=== PATIENT | female | born 1990 | race Caucasian/White ===

== ENCOUNTER 2016-10-06 14:57 | Emergency (ER) | payer OTHER ==
[2016-10-06 15:02] VITALS: TEMP 98.2; BMI 20.3
--- NOTE | 2016-10-06 15:24 | PDOC ---
History of Present Illness - General History Source: Patient - History of Present Illness Initial Comments: 10/06/16 16:31 The patient is a 26 year old female with a significant past medical history of migraines and scoliosis who presents to the Emergency Department with complaints of gradually worsening pounding left-sided headache and numbness and tingling to the left side of face and left arm for 2 days. Pt was diagnosed with migraines in the past and she states that she is having the similar symptoms. She also reports photophobia, dizziness, and nausea. Pt is on excedrin migraine, with no relief. She denies fever, chills, abdominal pain, vomiting, diarrhea, hematuria, dysuria. PCP: Dr. Kandice Wing <Isabel Velazquez - Last Filed: 10/06/16 16:31> <Yogesh Retana - Last Filed: 10/06/16 18:21> - General Chief Complaint: Migraine Headache Stated Complaint: HEADACHES, NUMBNESS TO LT SIDE OF FACE Time Seen by Provider: 10/06/16 15:13 Past History <Isabel Velazquez - Last Filed: 10/06/16 16:31> - Past Medical History Other medical history: migraines - Psycho/Social/Smoking Cessation Hx Anxiety: No Suicidal Ideation: No Smoking Status: No Smoking History: Never smoked Have you smoked in the past 12 months: No Number of Cigarettes Smoked Daily: 0 Information on smoking cessation initiated: No Hx Alcohol Use: No Drug/Substance Use Hx: No Substance Use Type: None <Yogesh Retana - Last Filed: 10/06/16 18:21> - Past Medical History Allergies/Adverse Reactions: Allergies Allergy/AdvReac Type Severity Reaction Status Date / Time No Known Allergies Allergy Verified 04/01/15 13:24 Home Medications: Ambulatory Orders No Home Medications 0 dose .ROUTE UTDICT 03/09/14 Review of Systems - Review of Systems Able to Perform ROS?: Yes Comments:: 10/06/16 16:32 CONSTITUTIONAL: No reported: Fever, Chills, Diaphoresis, Generalized Weakness, Malaise, Loss of Appetite HEENT: No reported: Rhinorrhea, Nasal Congestion, Throat Pain, Throat Swelling, Difficulty Swallowing, Mouth Swelling, Ear Pain, Eye Pain, Visual Changes CARDIOVASCULAR: No reported: Chest Pain, Syncope, Palpitations, Irregular Heart Rate, Lightheadedness, Peripheral Edema RESPIRATORY: No reported: Cough, Shortness of Breath, SOB with Exertion, Orthopnea, Wheezing , Stridor, Hemoptysis GASTROINTESTINAL: Yes: nausea No reported: Abdominal pain, Abdominal Distension, Vomiting, Diarrhea, Constipation, Melena, Hematochezia GENITOURINARY: No reported: Dysuria, Frequency, Urgency, Hesitancy, Flank Pain, Genital Pain MUSCULOSKELETAL: No reported: Myalgia, Arthralgia, Joint Swelling, Back pain, Neck Pain SKIN: No reported: Rash, Itching, Pallor HEMEATOLOGIC/IMMUNOLOGIC: No reported: Easy Bleeding, Easy Bruising, Lymphadenopathy, Frequent infections ENDOCRINE: No reported: Unexplained Weight Gain, Unexplained Weight Loss, Heat Intolerance , Cold Intolerance NEUROLOGIC: Yes: dizziness, headache, photobia, numbness and tingling left sided No reported : Focal Weakness, Vertigo, Unsteady Gait, Seizure, Mental Status Changes, Incontinence PSYCHIATRIC: No reported: Anxiety, Depression All Other Systems: Reviewed and Negative <Isabel Velazquez - Last Filed: 10/06/16 16:31> *Physical Exam - Vital Signs Last Vital Signs Temp Pulse Resp BP Pulse Ox 98.2 F 76 20 139/87 100 10/06/16 15:00 10/06/16 15:00 10/06/16 15:00 10/06/16 15:00 10/06/16 15:00 - Physical Exam Comments: 10/06/16 16:32 GENERAL: The patient is awake, alert, and fully oriented, Nontoxic - in no acute distress. HEAD: Normocephalic, atraumatic. EYES: extraocular movements intact, sclera anicteric, conjunctiva clear. pupils 3mm and symmetric ENT: Normal voice, Moist mucous membranes. NECK: Normal range of motion, supple LUNGS: Breath sounds equal, clear to auscultation bilaterally. No wheezes, no rhonchi, no rales. HEART: Regular rate and rhythm, normal S1 and S2 without murmur, rub or gallop. ABDOMEN: Soft, nontender, normoactive bowel sounds. No guarding, no rebound. . No CVA tenderness EXTREMITIES: Normal range of motion, no edema. No clubbing or cyanosis. No cords, erythema, or tenderness. NEUROLOGICAL: No facial assymetry, Normal speech, sensation intact and symmetric on face/armslegs, motor function 5/5 inupper/lower extremities, normal gait, negative romberg, no ataxia PSYCH: Normal mood, normal affect. SKIN: Warm, Dry, normal turgor, <Isabel Velazquez - Last Filed: 10/06/16 16:31> - Vital Signs Last Vital Signs Temp Pulse Resp BP Pulse Ox 98.2 F 76 20 139/87 100 10/06/16 15:00 10/06/16 15:00 10/06/16 15:00 10/06/16 15:00 10/06/16 15:00 <Yogesh Retana - Last Filed: 10/06/16 18:21> ED Treatment Course - LABORATORY CBC & Chemistry Diagram: 10/06/16 15:39 10/06/16 15:45 - Medications Given in the ED: ED Medications Discontinued Medications Generic Name Dose Route Start Last Admin Trade Name Freq PRN Reason Stop Dose Admin Sodium Chloride 1,000 mls @ 1,000 mls/hr 10/06/16 15:32 10/06/16 16:03 Normal Saline - IV 10/06/16 16:31 1,000 mls/hr .Q1H ONE Administration Ketorolac Tromethamine 30 mg 10/06/16 15:32 10/06/16 16:03 Toradol Injection - IVPUSH 10/06/16 15:33 30 mg ONCE ONE Administration Magnesium Sulfate 1 gm 10/06/16 15:32 10/06/16 16:03 Magnesium Sulfate IVPB 10/06/16 15:33 1 gm ONCE ONE Administration Metoclopramide HCl 10 mg 10/06/16 15:32 10/06/16 16:03 Reglan Injection - IVPUSH 10/06/16 15:33 10 mg ONCE ONE Administration <Isabel Velazquez - Last Filed: 10/06/16 16:31> - LABORATORY CBC & Chemistry Diagram: 10/06/16 15:39 10/06/16 15:45 <Yogesh Retana - Last Filed: 10/06/16 18:21> Medical Decision Making - Medical Decision Making 10/06/16 15:33 26y F hx of migraines, scoliosis presentss with headache x 2 days, gradually worsening, associate n/b, photophobia, and a tingling sensation to her face and arms/legs on left side. The patient states this is simialr to the patients prior migraines, she tried tylenola nd excedrin migraine without significant improvement. on exam the pt is in no acute distress, has a nonfocal neuro/ physical exam, will give the pt reglan, fliuds, toradol, magenesium suspect complicated migraine as it is similar to prior headaches, doubt SAH as pt has had similar headaches, and was gradually worsening over course of 2-3 days will reassess after meds if persistent, will obtain CT head A portion of this note was documented by scribe services under my direction. I have reviewed the details of the note, within reason, and agree with the documentation with the following case summary and management plan written by me 10/06/16 18:19 pt feeling improved headache and parasthesias resolved will d/c the pt with pmd and neuro fu return precautions were discussed I discussed the physical exam findings, ancillary test results and final diagnoses with the patient. I answered all of the patient's questions. The patient was satisfied with the care received and felt comfortable with the discharge plan and treatment plan. The patient will call their primary care physician within 24 hours to arrange follow-up and will return to the Emergency Department with any new, persistent or worsening symptoms. <Yogesh Retana - Last Filed: 10/06/16 18:21> *DC/Admit/Observation/Transfer - Attestations Scribe Attestion: 10/06/16 16:32 Documentation prepared by Isabel Velazquez, acting as medical donation professional for Yogesh Retana MD. <Isabel Velazquez - Last Filed: 10/06/16 16:31> - Discharge Dispostion Admit: No <Yogesh Retana - Last Filed: 10/06/16 18:21> Diagnosis at time of Disposition: Migraine Qualifiers: Migraine type: with aura Status migrainosus presence: without status migrainosus Intractability: not intractable Qualified Code(s): G43.109 - Migraine with aura, not intractable, without status migrainosus - Discharge Dispostion Disposition: HOME Condition at time of disposition: Improved - Referrals Referrals: Kandice Wing [Primary Care Provider] - Xochitl Montiel MD [Staff Physician] - - Patient Instructions Printed Discharge Instructions: DI for Migraine Additional Instructions: Vuelva al departamento de emergencia inmediatamente con CUALQUIER nuevo, persistente o empeorando los sntomas. Usted DEBE llamar y seguir con umanzor doctor maana para la evaluacin adicional de iesha sntomas. Los resultados fueron discutidos con usted. Por favor, asegrese de que umanzor mdico revise los resultados de umanzor evaluacin de emergencia. Si usted tuvo alguna radiografa femi umanzor visita, fue roman preliminarmente por m mismo, un Radilogo lo revisar y si hay algn hallazgo adicional lo llamaremos. Return to the emergency department immediately with ANY new, persistent or worsening symptoms. You MUST call and follow up with your doctor tomorrow for further evaluation of your symptoms. Results were discussed with you. Please make sure your doctor reviews the results of your emergency evaluation. If you had any xrays during your visit, it was read preliminarily by myself, a Radiologist will review it and if there are any additional findings we will call you.
[2016-10-06] MEDS ORDERED: MAGNESIUM SULF 50% (8.12 MEQ/2 ML-1 GM VIAL) IVPB ONE (15:32)
[2016-10-06] MEDS ORDERED: METOCLOPRAMIDE HCL INJECTION 10 MG/2 ML VIAL IVPUSH ONE (15:32)
[2016-10-06] MEDS ORDERED: KETOROLAC TROMETHAMINE 30 MG/1 ML VIAL IVPUSH ONE (15:32)
[2016-10-06] MEDS ORDERED: SODIUM CHLORIDE 1,000 ML IV ONE (15:32)
[2016-10-06] MEDS ORDERED: METOCLOPRAMIDE HCL INJECTION 10 MG/2 ML VIAL ONE (15:41)
[2016-10-06] MEDS ORDERED: MAGNESIUM SULF 50% (8.12 MEQ/2 ML-1 GM VIAL) ONE (15:41)
[2016-10-06] MEDS ORDERED: KETOROLAC TROMETHAMINE 60 MG/2 ML VIAL ONE (15:41)
[2016-10-06 16:15] LABS: BASOPHIL 0.5 % (0-2.0); EOSINOPHIL 0.6 % (0-4.5); MCH 28.5 pg (25.7-33.7); MCHC 32.5 g/dl (32.0-36.0); MEAN CELL VOLUME 87.7 fl (80-96); MEAN PLT VOLUME 9.2 fl (7.5-11.1); NEUTROPHILS 59.6 % (42.8-82.8); PLATELET COUNT 289 K/MM3 (134-434); RDW 13.4 % (11.6-15.6); WHITE BLOOD COUNT 10.8 K/mm3 (4.0-10.0)
[2016-10-06 16:40] LABS: URINE APPEARANCE CLEAR; URINE BILIRUBIN NEGATIVE (NEGATIVE); URINE BLOOD NEGATIVE (NEGATIVE); URINE COLOR STRAW; URINE GLUCOSE (UA) NEGATIVE (NEGATIVE); URINE KETONE NEGATIVE (NEGATIVE); URINE LEUK ESTERASE NEGATIVE (NEGATIVE); URINE NITRITE NEGATIVE (NEGATIVE); URINE PROTEIN NEGATIVE (NEGATIVE); URINE UROBILINOGEN NEGATIVE E.U./dl (0.2-1.0)
[2016-10-06 16:46] LABS: ALBUMIN 3.7 g/dl (3.4-5.0); CALCIUM 9.1 mg/dL (8.5-10.1); CREATININE 1.1 mg/dL (0.55-1.02)
[2016-10-06 16:48] LABS: BILIRUBIN,TOTAL 0.5 mg/dL (0.2-1.0); TOT PROT 7.1 g/dl (6.4-8.2)
[2016-10-06 18:43] VITALS: BP 126/56; PULSE 78
== END 2016-10-06 18:43 | disposition home or self-care (01) ==
LOC: JER 14:57
PROC: 3E0333Z Introduction of Anti-inflammatory into Peripheral Vein, Percutaneous Approach (ICD-10-PCS; principal; 2016-10-06)
PROC: 3E033GC Introduction of Other Therapeutic Substance into Peripheral Vein, Percutaneous Approach (ICD-10-PCS; 2016-10-06)
DX: G43.109 Migraine with aura, not intractable, without status migrainosus (principal)
CPT/HCPCS: 36415; 80053; 81003; 84703; 85025; 96374; 96375; 99283-25

== ENCOUNTER 2019-11-18 16:02 | Emergency (ER) | payer OTHER ==
[2019-11-18 16:08] VITALS: BP 133/86; PULSE 90; TEMP 98.9; BMI 25.0
--- NOTE | 2019-11-18 16:09 | PDOC ---
Rapid Medical Evaluation Time Seen by Provider: 11/18/19 16:05 Medical Evaluation: Allergies Allergy/AdvReac Type Severity Reaction Status Date / Time No Known Allergies Allergy Verified 11/18/19 16:05 11/18/19 16:07 Pt presents for evaluation of a productive cough for 2 weeks and generalized body aches. She notes she has blood after coughing and had subjective fevers this morning for which she took Tylenol. Exam: lungs CTAB Orders: CXR Pt to proceed to the ER for further evaluation. Discharge Disposition - Diagnosis Cough - Referrals - Patient Instructions - Post Discharge Activity
--- NOTE | 2019-11-18 16:40 | PDOC ---
History of Present Illness - General Chief Complaint: Cold Symptoms Stated Complaint: COUGH/FEVER Time Seen by Provider: 11/18/19 16:05 History Source: Patient - History of Present Illness Timing/Duration: reports: other Past History - Past Medical History Allergies/Adverse Reactions: Allergies Allergy/AdvReac Type Severity Reaction Status Date / Time No Known Allergies Allergy Verified 11/18/19 16:05 Home Medications: Ambulatory Orders No Home Medications 0 dose .ROUTE UTDICT 03/09/14 Ibuprofen 600 mg PO ACDIN #21 tablet 01/11/18 Valacyclovir HCl [Valtrex] 1,000 mg PO BID #14 tablet 01/11/18 COPD: No - Psycho Social/Smoking Cessation Hx Smoking Status: No Smoking History: Never smoked Have you smoked in the past 12 months: No Number of Cigarettes Smoked Daily: 0 Hx Alcohol Use: No Drug/Substance Use Hx: No Substance Use Type: None Review of Systems - Review of Systems Constitutional: No: Chills, Fever HEENTM: Yes: Ear Pain. No: Throat Pain Respiratory: Yes: Cough. No: Shortness of Breath, Wheezing Cardiac (ROS): No: Chest Pain *Physical Exam - Vital Signs Last Vital Signs Temp Pulse Resp BP Pulse Ox 98.9 F 90 18 133/86 100 11/18/19 16:06 11/18/19 16:06 11/18/19 16:06 11/18/19 16:06 11/18/19 16:06 - Physical Exam General Appearance: Yes: Appropriately Dressed. No: Apparent Distress HEENT: positive: Normal ENT Inspection, Normal Voice, TMs Normal, Pharynx Normal. negative: Scleral Icterus (R), Scleral Icterus (L) Neck: positive: Supple Respiratory/Chest: positive: Lungs Clear, Normal Breath Sounds. negative: Respiratory Distress Cardiovascular: positive: Regular Rate, S1, S2 Integumentary: positive: Dry, Warm Neurologic: positive: Fully Oriented, Alert, Normal Mood/Affect Medical Decision Making - Medical Decision Making 11/18/19 16:38 29-year-old female, denies any past medical history, here with 2 weeks of non- productive cough with b/l ear pain. Denies hemoptysis, shortness of breath, chest pain, fever or chills. No history of pneumonia. Non-smoker see exam M/l viral URI Exam wnl CXR ordered at [facility] and neg Dc w/ supportive tx Discharge - Discharge Information Problems reviewed: Yes Clinical Impression/Diagnosis: Cough Condition: Good Disposition: HOME - Follow up/Referral Referrals: Kandice Wing [Primary Care Provider] - - Patient Discharge Instructions Patient Printed Discharge Instructions: DI for Viral Upper Respiratory Infection -- Adult - Post Discharge Activity
== END 2019-11-18 16:40 | disposition home or self-care (01) ==
LOC: JERFT 16:02
DX: J06.9 Acute upper respiratory infection, unspecified (principal); B97.89 Other viral agents as the cause of diseases classified elsewhere
CPT/HCPCS: 71046-TC-FY; 99283-25

== ENCOUNTER 2021-01-23 17:53 | Emergency (ER) | payer OTHER ==
[2021-01-23 18:00] VITALS: BP 137/95; PULSE 85; TEMP 97.3; BMI 23.5
[2021-01-23] MEDS ORDERED: LORATADINE 10 MG TABLET PO ONE (18:15)
[2021-01-23] MEDS ORDERED: LORATADINE 10 MG TABLET ONE (18:16)
== END 2021-01-23 18:20 | disposition home or self-care (01) ==
LOC: JER 17:53 → JERFT 17:53
DX: L50.0 Allergic urticaria (principal)
CPT/HCPCS: 99283-25

== ENCOUNTER 2022-03-01 11:45 | Emergency (ER) | payer OTHER ==
[2022-03-01 11:58] VITALS: BP 145/92; PULSE 91; TEMP 98.4; BMI 25.8
[2022-03-01] MEDS ORDERED: ACETAMINOPHEN 325 MG TABLET (FP) PO ONE (12:56)
[2022-03-01] MEDS ORDERED: ACETAMINOPHEN 325 MG TABLET (FP) ONE (12:58)
[2022-03-01 14:44] LABS: BASO % 0.4 % (0-2.0); EOS % 0.9 % (0-4.5); HEMATOCRIT 37.7 % (32.4-45.2); HEMOGLOBIN 12.7 GM/dL (10.7-15.3); LYMPH % 33.8 % (8-40); MCH 28.6 pg (25.7-33.7); MCHC 33.7 g/dl (32.0-36.0); MEAN CELL VOLUME 84.7 fl (80-96); MEAN PLT VOLUME 8.9 fl (7.5-11.1); MONO % 5.6 % (3.8-10.2); NEUT % 59.3 % (42.8-82.8); PLATELET COUNT 280 10^3/uL (134-434); RBC 4.45 M/mm3 (3.60-5.2); RDW 13.8 % (11.6-15.6); WHITE BLOOD COUNT 9.2 K/mm3 (4.0-10.0)
[2022-03-01 15:20] LABS: CALCIUM 9.5 mg/dL (8.5-10.1)
[2022-03-01 15:21] LABS: ALBUMIN 3.6 g/dl (3.4-5.0); BLOOD UREA NITROGEN 12.3 mg/dL (7-18)
[2022-03-01 15:25] LABS: BILIRUBIN,TOTAL 0.4 mg/dL (0.2-1); TOT PROT 7.1 g/dl (6.4-8.2)
== END 2022-03-01 17:10 | disposition home or self-care (01) ==
LOC: JER 11:45
DX: M54.2 Cervicalgia (principal)
CPT/HCPCS: 36415; 70450-TC; 72125-TC; 80053; 85025; 93005; 93010; 99285-25

== ENCOUNTER 2022-04-05 13:34 | Emergency (ER) | payer OTHER ==
[2022-04-05 14:44] VITALS: BP 132/86; PULSE 85; TEMP 98.2; BMI 25.0
[2022-04-05 16:38] LABS: BASO % 0.7 % (0-2.0); EOS % 1.6 % (0-4.5); HEMATOCRIT 38.1 % (32.4-45.2); HEMOGLOBIN 12.7 GM/dL (10.7-15.3); LYMPH % 36.5 % (8-40); MCH 28.6 pg (25.7-33.7); MCHC 33.5 g/dl (32.0-36.0); MEAN CELL VOLUME 85.4 fl (80-96); MEAN PLT VOLUME 8.7 fl (7.5-11.1); MONO % 7.8 % (3.8-10.2); NEUT % 53.4 % (42.8-82.8); PLATELET COUNT 309 10^3/uL (134-434); RBC 4.46 M/mm3 (3.60-5.2); WHITE BLOOD COUNT 7.6 K/mm3 (4.0-10.0)
[2022-04-05 16:45] LABS: EPI CELLS 3 /uL (0-25.1); HYALINE CASTS 0 /uL (0-3.1); PH,URINE 6.5 (5.0-8.0); URINE APPEARANCE CLEAR; URINE BACTERIA 5 /uL (0-1359); URINE BILIRUBIN NEGATIVE (NEGATIVE); URINE COLOR YELLOW; URINE GLUCOSE (UA) NEGATIVE (NEGATIVE); URINE KETONE NEGATIVE (NEGATIVE); URINE LEUK ESTERASE NEGATIVE (NEGATIVE); URINE NITRITE NEGATIVE (NEGATIVE); URINE PROTEIN NEGATIVE (NEGATIVE); URINE RBC 443 /uL (0-23.9); URINE UROBILINOGEN 0.2 mg/dL (0.2-1.0); URINE WBC 3 /uL (0-25.8)
[2022-04-05 17:02] LABS: CALCIUM 9.4 mg/dL (8.5-10.1)
[2022-04-05 17:03] LABS: ALBUMIN 3.3 g/dl (3.4-5.0); BLOOD UREA NITROGEN 11.2 mg/dL (7-18)
[2022-04-05 17:07] LABS: BILIRUBIN,TOTAL 0.2 mg/dL (0.2-1)
[2022-04-05 17:08] LABS: TOT PROT 6.6 g/dl (6.4-8.2)
== END 2022-04-05 18:43 | disposition home or self-care (01) ==
LOC: JER 13:34
DX: R60.0 Localized edema (principal)
CPT/HCPCS: 36415; 71046-TC-FY; 80053; 81003; 84484; 85025; 93005; 93010; 99285-25

== ENCOUNTER 2023-01-26 07:38 | Emergency (ER) | payer OTHER ==
[2023-01-26 07:59] VITALS: BMI 25.8
[2023-01-26] MEDS ORDERED: METOCLOPRAMIDE HCL INJECTION 10 MG/2 ML VIAL IVPUSH ONE (08:50)
[2023-01-26] MEDS ORDERED: SODIUM CHLORIDE 0.9% 500 ML INFUS.BAG IV ONE (08:50)
[2023-01-26 09:00] LABS: BASO % 0.7 % (0-2.0); EOS % 2.2 % (0-4.5); HEMATOCRIT 37.2 % (32.4-45.2); HEMOGLOBIN 12.9 GM/dL (10.7-15.3); LYMPH % 32.7 % (8-40); MCH 29.2 pg (25.7-33.7); MCHC 34.7 g/dl (32.0-36.0); MEAN CELL VOLUME 84.2 fl (80-96); NEUT % 57.4 % (42.8-82.8); PLATELET COUNT 272 10^3/uL (134-434); RBC 4.42 M/mm3 (3.60-5.2); RDW 13.8 % (11.6-15.6); WHITE BLOOD COUNT 4.6 K/mm3 (4.0-10.0)
[2023-01-26] MEDS ORDERED: METOCLOPRAMIDE HCL INJECTION 10 MG/2 ML VIAL ONE (09:04)
[2023-01-26 09:18] LABS: ALBUMIN 3.5 g/dl (3.4-5.0); CALCIUM 9.1 mg/dL (8.5-10.1)
[2023-01-26 09:19] LABS: BLOOD UREA NITROGEN 10.9 mg/dL (7-18); MAGNESIUM 2.1 mg/dL (1.8-2.4)
[2023-01-26 09:23] LABS: BILIRUBIN,TOTAL 0.8 mg/dL (0.2-1); TOT PROT 6.7 g/dl (6.4-8.2)
[2023-01-26] MEDS ORDERED: KETOROLAC TROMETHAMINE 30 MG/1 ML VIAL IVPUSH ONE (10:08)
[2023-01-26] MEDS ORDERED: KETOROLAC TROMETHAMINE 15 MG/ML VIAL ONE (10:58)
[2023-01-26 11:53] VITALS: BP 140/88; PULSE 64; RESP 19; TEMP 98.2
== END 2023-01-26 12:33 | disposition home or self-care (01) ==
LOC: JER 07:38
PROC: 3E033GC Introduction of Other Therapeutic Substance into Peripheral Vein, Percutaneous Approach (ICD-10-PCS; principal; 2023-01-26)
DX: R51.9 Headache, unspecified (principal)
CPT/HCPCS: 36415; 80053; 83735; 84484; 85025; 93005; 93010; 99284-25

== ENCOUNTER 2023-07-13 18:31 | Emergency (ER) | payer OTHER ==
[2023-07-13 18:44] VITALS: BP 145/92; PULSE 84; RESP 16; TEMP 98; BMI 25.0
[2023-07-13] MEDS ORDERED: ONDANSETRON 4 MG/2 ML VIAL IVPUSH ONE (19:25)
[2023-07-13] MEDS ORDERED: ACETAMINOPHEN 1000 MG/100 ML BAG IVPB ONE (19:25)
[2023-07-13] MEDS ORDERED: ACETAMINOPHEN INJECTION 100 ML IVPB ONE (19:41)
[2023-07-13] MEDS ORDERED: ONDANSETRON 4 MG/2 ML VIAL ONE (19:41)
[2023-07-13 19:48] LABS: URINE APPEARANCE CLEAR; URINE BILIRUBIN NEGATIVE (NEGATIVE); URINE COLOR YELLOW; URINE GLUCOSE (UA) NEGATIVE (NEGATIVE); URINE KETONE NEGATIVE (NEGATIVE); URINE LEUK ESTERASE NEGATIVE (NEGATIVE); URINE NITRITE NEGATIVE (NEGATIVE); URINE PROTEIN NEGATIVE (NEGATIVE); URINE UROBILINOGEN 0.2 mg/dL (0.2-1.0)
[2023-07-13 19:54] LABS: BASO % 0.2 % (0-2.0); EOS % 1.4 % (0-4.5); HEMATOCRIT 37.1 % (32.4-45.2); HEMOGLOBIN 12.7 GM/dL (10.7-15.3); LYMPH % 27.2 % (8-40); MCHC 34.3 g/dl (32.0-36.0); MEAN CELL VOLUME 84.5 fl (80-96); MEAN PLT VOLUME 8.2 fl (7.5-11.1); MONO % 7.7 % (3.8-10.2); NEUT % 63.5 % (42.8-82.8); PLATELET COUNT 300 10^3/uL (134-434); RBC 4.39 M/mm3 (3.60-5.2); RDW 13.3 % (11.6-15.6); WHITE BLOOD COUNT 11.7 K/mm3 (4.0-10.0)
[2023-07-13 20:01] LABS: INR 1.11 (0.83-1.09); PROTHROMBIN TIME (PATIENT) 12.9 SEC (9.7-13.0)
[2023-07-13 20:03] LABS: ACTIVATED PTT 31.2 SECONDS (25.2-36.5)
[2023-07-13 20:29] LABS: CALCIUM 8.7 mg/dL (8.5-10.1)
[2023-07-13 20:30] LABS: ALBUMIN 3.8 g/dl (3.4-5.0); BLOOD UREA NITROGEN 14.5 mg/dL (7-18)
[2023-07-13 20:34] LABS: CREATININE 1.1 mg/dL (0.55-1.3); TOT PROT 7.2 g/dl (6.4-8.2)
[2023-07-13 20:36] LABS: BILIRUBIN,TOTAL 0.4 mg/dL (0.2-1)
== END 2023-07-13 23:30 | disposition home or self-care (01) ==
LOC: JER 18:31
PROC: 3E033GC Introduction of Other Therapeutic Substance into Peripheral Vein, Percutaneous Approach (ICD-10-PCS; principal; 2023-07-13)
PROC: 3E033NZ Introduction of Analgesics, Hypnotics, Sedatives into Peripheral Vein, Percutaneous Approach (ICD-10-PCS; 2023-07-13)
DX: O26.891 Other specified pregnancy related conditions, first trimester (principal); R10.32 Left lower quadrant pain; O23.91 Unspecified genitourinary tract infection in pregnancy, first trimester; R30.0 Dysuria; R11.0 Nausea; O99.891 Other specified diseases and conditions complicating pregnancy; R68.83 Chills (without fever); Z3A.01 Less than 8 weeks gestation of pregnancy
CPT/HCPCS: 36415; 76817-TC; 80053; 81003; 84702; 85025; 85610; 85730; 86850; 86900; 86901; 87086; 87491; 87591; 99284-25

== ENCOUNTER 2024-02-16 21:50 | Emergency (ER) | payer OTHER ==
[2024-02-16 21:58] VITALS: RESP 18; BMI 29.0
[2024-02-16] MEDS ORDERED: ONDANSETRON 4 MG/2 ML VIAL ONE (22:33)
[2024-02-16] MEDS ORDERED: ACETAMINOPHEN INJECTION 100 ML IVPB ONE (22:33)
[2024-02-16] MEDS: ACETAMINOPHEN 1000 MG/100 ML BAG IVPB ONE (22:47)
[2024-02-16] MEDS: ONDANSETRON 4 MG/2 ML VIAL IVPUSH ONE (22:47)
[2024-02-16 22:53] LABS: BASO % 0.4 % (0-2.0); EOS % 0.1 % (0-4.5); HEMOGLOBIN 12.5 GM/dL (10.7-15.3); LYMPH % 9.5 % (8-40); MCH 28.9 pg (25.7-33.7); MCHC 33.8 g/dl (32.0-36.0); MEAN CELL VOLUME 85.6 fl (80-96); MEAN PLT VOLUME 8.5 fl (7.5-11.1); MONO % 4.6 % (3.8-10.2); NEUT % 85.4 % (42.8-82.8); PLATELET COUNT 269 10^3/uL (134-434); RBC 4.32 M/mm3 (3.60-5.2); RDW 13.6 % (11.6-15.6); WHITE BLOOD COUNT 18.6 K/mm3 (4.0-10.0)
[2024-02-16 23:01] LABS: INR 1.09 (0.83-1.09); PROTHROMBIN TIME (PATIENT) 12.3 SEC (9.7-13.0)
[2024-02-16 23:04] LABS: ACTIVATED PTT 29.3 SECONDS (25.2-36.5)
[2024-02-16 23:12] LABS: POTASSIUM 3.8 mmol/L (3.5-5.1)
[2024-02-16 23:14] LABS: CALCIUM 8.8 mg/dL (8.5-10.1)
[2024-02-16] MEDS ORDERED: KETOROLAC TROMETHAMINE 15 MG/ML VIAL ONE (23:14)
[2024-02-16 23:15] LABS: ALBUMIN 3.5 g/dl (3.4-5.0); BLOOD UREA NITROGEN 15.3 mg/dL (7-18)
[2024-02-16 23:18] LABS: CREATININE 1.2 mg/dL (0.55-1.3)
[2024-02-16 23:19] LABS: BILIRUBIN,TOTAL 0.5 mg/dL (0.2-1); TOT PROT 6.8 g/dl (6.4-8.2)
[2024-02-16] MEDS: KETOROLAC TROMETHAMINE 15 MG/ML VIAL IVPUSH ONE (23:21)
[2024-02-16] MEDS: morphine CARPU-JECT 2 MG/1 ML DISP.SYRIN IVPUSH ONE (23:59)
[2024-02-17] MEDS: morphine CARPU-JECT 2 MG/1 ML DISP.SYRIN IVPUSH ONE (01:16)
[2024-02-17 01:32] VITALS: BP 113/73; PULSE 92; TEMP 97.4
[2024-02-17 11:34] LABS: EPI CELLS 7 /uL (0-25.1); HYALINE CASTS 0 /uL (0-3.1); URINE APPEARANCE Clear; URINE BACTERIA 22 /uL (0-1359); URINE BILIRUBIN Negative (NEGATIVE); URINE COLOR Yellow; URINE GLUCOSE (UA) Negative (NEGATIVE); URINE KETONE 2+ (NEGATIVE); URINE LEUK ESTERASE Negative (NEGATIVE); URINE NITRITE Negative (NEGATIVE); URINE PROTEIN Negative (NEGATIVE); URINE RBC 673 /uL (0-23.9); URINE UROBILINOGEN 0.2 mg/dL (0.2-1.0); URINE WBC 6 /uL (0-25.8)
== END 2024-02-17 06:04 | disposition home or self-care (01) ==
LOC: JER 21:50
PROC: 3E033NZ Introduction of Analgesics, Hypnotics, Sedatives into Peripheral Vein, Percutaneous Approach (ICD-10-PCS; principal; 2024-02-16)
PROC: 3E0333Z Introduction of Anti-inflammatory into Peripheral Vein, Percutaneous Approach (ICD-10-PCS; 2024-02-16)
PROC: 3E033NZ Introduction of Analgesics, Hypnotics, Sedatives into Peripheral Vein, Percutaneous Approach (ICD-10-PCS; 2024-02-16)
PROC: 3E033GC Introduction of Other Therapeutic Substance into Peripheral Vein, Percutaneous Approach (ICD-10-PCS; 2024-02-16)
PROC: 3E033NZ Introduction of Analgesics, Hypnotics, Sedatives into Peripheral Vein, Percutaneous Approach (ICD-10-PCS; 2024-02-17)
DX: O03.9 Complete or unspecified spontaneous abortion without complication (principal)
CPT/HCPCS: 36415; 76817-TC; 80053; 81003; 84702; 85025; 85610; 85730; 86850; 86900; 86901; 87077; 87086; 93005; 93010; 99285-25; J0131